=== PATIENT | female | born 1950 | race Caucasian/White ===

== ENCOUNTER 2018-09-29 15:05 | Emergency (ER) | payer MEDICARE, OTHER ==
--- NOTE | 2018-09-29 15:23 | Emergency Department Record ---
History of Present Illness - General Chief complaint: Weakness Stated complaint: WEAK,HEAD ACHE AND NECK PAIN Time Seen by Provider: 09/29/18 15:15 Disposition Quality - Blood Pressure Screening Does Patient Have Any of the Following: No Systolic Measurement: ~
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
[2018-09-29 16:03] LABS: BASO % 0.5 % (0-6); EOS % 0.6 % (0-6); GRAN % 64.8 % (47-80); HEMATOCRIT 40.3 % (35.0-47.0); HEMOGLOBIN 13.4 gm/dl (11.6-16.0); MEAN CELL VOLUME 90.4 fl (81-97); MEAN CORPUSCULAR HGB CONC 33.3 g/dl (32-36); MEAN PLATELET VOLUME 10.8 fl (7.4-10.4); MONO % 6.1 % (0-9); PLATELET COUNT 301 K/uL (130-400); RED BLOOD COUNT 4.46 M/uL (3.80-5.40); RED CELL DISTRIBUTION WIDTH 13.8 % (11.5-14.5); WHITE BLOOD COUNT W/O DIFF 10.4 K/uL (4.2-12.2)
[2018-09-29 16:18] LABS: BLOOD UREA NITROGEN 7 mg/dL (8-23)
[2018-09-29 16:19] LABS: CREATININE 0.8 mg/dL (0.5-0.9); EST GLOMERULAR FILTRATION RATE > 60 mL/min; TOTAL PROTEIN 7.7 g/dL (6.6-8.7)
[2018-09-29 16:21] LABS: GLUCOSE,RANDOM 98 mg/dL (74-109)
[2018-09-29 16:22] LABS: PARTIAL THROMBOPLASTIN TIME 32.7 SECONDS (24.5-39.1); PROTHROMBIN TIME (PATIENT) 10.1 SECONDS (9.5-12.1)
[2018-09-29 16:24] LABS: ALB/GLOB RATIO 1.4 (1.1-1.8); ALBUMIN 4.5 g/dL (4.0-5.0); ALKALINE PHOSPHATASE 67 U/L (35-104); ALT/SGPT 12 U/L (<33); AST/SGOT 19 U/L (10.0-35.0)
[2018-09-29] MEDS ORDERED: ONDANSETRON HCL IV 4 MG/2 ML VIAL IVP ONE (16:36)
[2018-09-29] MEDS ORDERED: 0.9 % SODIUM CHLORIDE 500ML 500 ML IV SCH (16:45)
[2018-09-29] MEDS ORDERED: LORAZEPAM 2 MG/ML VIAL IV ONE (16:53)
[2018-09-29 16:56] LABS: URINE APPEARANCE CLEAR; URINE BILIRUBIN NEGATIVE (NEGATIVE); URINE BLOOD SMALL (NEGATIVE); URINE COLOR YELLOW; URINE GLUCOSE (UA) NEGATIVE (NEGATIVE); URINE KETONE 15 mg/dL (NEGATIVE); URINE LEUKOCYTE ESTERASE NEGATIVE (NEGATIVE); URINE NITRITE NEGATIVE (NEGATIVE); URINE PROTEIN NEGATIVE (NEGATIVE); URINE UROBILINOGEN 0.2 E.U./dL (0.20 - 1.00)
[2018-09-29 17:05] LABS: URINE EPITHELIAL CELLS 0 - 2 (FEW); URINE RBC 0 - 2 (NONE SEEN); URINE WBC 0 - 2 (0-2/hpf)
--- NOTE | 2018-10-01 11:03 | CT SCAN REPORT ---
DATE: 09/29/2018 at 4:01 p.m. EXAM: EMERGENCY HEAD CT. HISTORY: CHRONIC HEADACHE AND DIZZINESS FOR NINE DAYS. TECHNIQUE: Axial CT scan of the head performed without intravenous contrast. COMPARISON: None. FINDINGS: No definite acute intracranial hemorrhage identified. No focal mass effect or midline shift apparent. No definite acute infarct or intracranial mass lesion is seen. There is some mild membrane thickening in the ethmoids bilaterally and probably minimally along the floor of the right maxillary antrum. Elsewhere the paranasal sinuses appear clear as do the mastoids. If the patient's neurologic symptoms persist, follow-up brain MRI would be suggested for further evaluation if not contraindicated. Mild deviation of the nasal septum to the right. Deepak bullosa formation involving the middle turbinates bilaterally. IMPRESSION: 1. NO ACUTE INTRACRANIAL HEMORRHAGE OR FOCAL MASS EFFECT IDENTIFIED. 2. MILD MEMBRANE THICKENING IN THE ETHMOIDS AND ALONG THE FLOOR OF THE RIGHT MAXILLARY SINUS. 3. MILD DEVIATION OF THE NASAL SEPTUM TO THE RIGHT AND DEEPAK BULLOSA FORMATION IN BOTH MIDDLE TURBINATES. JOB NUMBER: [id number] MTDD
--- NOTE | 2018-10-01 11:58 | CT SCAN REPORT ---
DATE: 09/29/2018 at 4:05 p.m. EXAM: EMERGENCY CT OF THE CERVICAL SPINE WITHOUT CONTRAST. HISTORY: DIZZINESS AND WEAKNESS FOR SEVERAL DAYS. TECHNIQUE: Axial CT scan of the entire cervical spine performed without intravenous contrast. Because of PACS equipment failure, the examination was initially sent to [facility] for a preliminary report and is subsequently being interpreted later the same day once the PACS issue was resolved at [facility]. COMPARISON: None. ENCOUNTER: Not applicable. FINDINGS: No apical pneumothorax evident. There does appear to be a couple of tiny bullae in the right apex which may represent mild changes of paraseptal emphysema. Degenerative arthritis at the left temporomandibular joint. No definite fracture of the cervical spine seen, and no prevertebral soft tissue swelling evident. Prominent degenerative change at the odontoid-anterior arch of C1 articulation. Narrowing of the fifth and sixth cervical interspaces with associated hypertrophic spurring. Multilevel facet joint arthropathy as well. Mild disc protrusion centrally at the C3-4 and C4-5 levels. IMPRESSION: 1. NO DEFINITE FRACTURE OR PREVERTEBRAL SOFT TISSUE SWELLING IDENTIFIED IN THE CERVICAL SPINE. 2. MULTILEVEL DEGENERATIVE CHANGE DETAILED ABOVE. 3. A COUPLE OF TINY BULLAE IN THE PERIPHERY OF THE RIGHT LUNG APEX LIKELY REPRESENTING MILD CHANGES OF PARASEPTAL EMPHYSEMA. JOB NUMBER: [id number] MTDD
== END 2018-09-29 17:25 | disposition home or self-care (01) ==
LOC: ER 15:05
DX: G89.29 Other chronic pain (principal); M54.2 Cervicalgia; R51 Headache; E87.8 Other disorders of electrolyte and fluid balance, not elsewhere classified; R42 Dizziness and giddiness; R53.1 Weakness; R11.0 Nausea; I10 Essential (primary) hypertension; F17.210 Nicotine dependence, cigarettes, uncomplicated
CPT/HCPCS: 99284 ×2; 96374; 96375; 85025; 85730; 85610; 80053; 81001; 84443; 84484; 72125; 70450; 93005; 93010; J2405; J2060; J7040

== ENCOUNTER 2019-07-27 14:13 | Emergency (ER) | payer MEDICARE, OTHER ==
--- NOTE | 2019-07-27 14:22 | Emergency Department Record ---
History of Present Illness - General Chief complaint: Vomiting blood Stated complaint: VOMITING BLOOD Time Seen by Provider: 07/27/19 14:21 Source: Patient Mode of Arrival: Ambulatory Limitations: No limitations - History of Present Illness Initial comments: The patient is here due to possibly vomiting blood an hour ago. She has been very anxious today and also has had elevated blood pressure. She did see her PCP today and was told to take extra Lisinopril and also a Xanax. After she took the Xanax she vomited at home and may have vomited blood. She describes the vomitus as having some red in it and is not exactly sure if it was blood. The patient denies any melena or black stools, AP, fever, ASA or NSAID use. She has no hx of Peptic Ulcer Dz and denies alcohol intake. MD complaint: Blood streaked emesis Onset/Timin -: Hour(s) Associated Symptoms: Nausea, Weakness - Related Data Previous Rx's Medication Instructions Recorded Ondansetron [Zofran Odt] 4 mg SL .Q4-6H PRN #12 tab.rapdis 07/27/19 Allergies Allergy/AdvReac Type Severity Reaction Status Date / Time Sulfa (Sulfonamide Allergy HYPERSENSIT Verified 07/27/19 14:21 Antibiotics) IVITY Travel Screening - Travel/Exposure Within Last 30 Days Have you traveled within the last 30 days?: No Review of Systems Constitutional: Denies: Chills Eyes: Denies: Eye discharge ENT: Denies: Congestion Respiratory: Denies: Cough Cardiovascular: Denies: Arrhythmia, Chest pain Endocrine: Denies: Fatigue Gastrointestinal: Reports: Nausea, Vomiting. Denies: Abdominal pain, Diarrhea Genitourinary: Denies: Dysuria Musculoskeletal: Denies: Arthralgia Skin: Denies: Bruising Neurological: Denies: Confusion Past Medical History - SOCIAL HISTORY Smoking Status: Light tobacco smoker (<10/day) Alcohol Use: None Drug Use: None - RESPIRATORY Hx Respiratory Disorders: Yes Hx COPD: Yes - CARDIOVASCULAR Hx Cardio Disorders: Yes Hx Hypertension: Yes - NEURO Hx Dizziness: Yes - GI Hx GI Disorders: Yes Hx Hiatal Hernia: Yes Hx Nausea/Vomiting: Yes Hx Rectal Bleeding: Yes - Hx Genitourinary Disorders: No - ENDOCRINE Hx Thyroid Disease: Yes - MUSCULOSKELETAL Hx Arthritis: Yes - PSYCH Hx Psych Problems: Yes Hx Anxiety: Yes - HEMATOLOGY/ONCOLOGY Hx Hematology/Oncology Disorders: No Physical Exam - General General Appearance: Alert, Oriented x3, Cooperative, No acute distress - Head Head exam: Atraumatic - Eye Eye exam: Normal appearance, PERRL - Neck Neck exam: Normal inspection, Full ROM. negative: Tenderness - Respiratory Respiratory exam: Normal lung sounds bilaterally. negative: Respiratory distress - Cardiovascular Cardiovascular Exam: Regular rate, Normal rhythm, Normal heart sounds - GI/Abdominal GI/Abdominal exam: Soft, Normal bowel sounds. negative: Distended, Guarding, Rebound, Rigid, Tenderness - Rectal Rectal exam: Heme (-) stool, Normal inspection - Extremities Extremities exam: Normal inspection, Full ROM, Normal capillary refill. negative: Tenderness - Neurological Neurological exam: Alert. negative: Motor sensory deficit Course Vital Signs 07/27/19 14:16 Temperature 97.7 F Pulse Rate 78 Respiratory 20 Rate Blood Pressure 193/81 Pulse Ox 100 - Reevaluation(s) Reevaluation #1: The patient is doing very well at this time. She has no nausea, abdominal pain, or back pain and is drinking water with no issues. On exam her abdomen is very soft and nontender in all 4 quads. I did explain to her that based on the neg rectal for blood, normal lab tests, and the fact the patient is doing very well clinically I doubt she vomited blood. She will be referred to GI on an outpatient basis and is to return to the ER for any worsening symptoms. 07/27/19 16:16 Medical Decision Making - Data Complexity MDM Data: Labs Ordered and/or Reviewed - Lab Data Result diagrams: 07/27/19 14:40 07/27/19 14:40 Disposition Disposition: Discharge Clinical Impression: Vomiting Qualifiers: Vomiting type: unspecified Vomiting Intractability: non-intractable Nausea presence: with nausea Qualified Code(s): R11.2 - Nausea with vomiting, unspecified Disposition: Home, Self-Care Condition: (2) Stable Instructions: Acute Nausea and Vomiting (ED) Additional Instructions: Please continue your regular medicines and use the Zofran for nausea. Please see your doctor tomorrow to recheck your blood pressure and also see Dr[facility] next [facility]. Return to the ER for any vomiting, fever, pain, or dark stools. Prescriptions: Ondansetron [Zofran Odt] 4 mg SL .Q4-6H PRN #12 tab.rapdis PRN Reason: Nausea Referrals: [facility] [Provider Group] Forms: Patient Portal Access Time of Disposition: 16:21 Quality - Quality Measures Quality Measures: N/A - Blood Pressure Screening View Details: Yes Does Patient Have Any of the Following: Active Dx of HTN Blood Pressure Classification: Pre-Hypertensive BP Reading Systolic Measurement: 193 Diastolic Measurement: 81 Screening for High Blood Pressure: Patient Exclusion, Hx of HTN [G9744]
[2019-07-27] MEDS: 0.9 % SODIUM CHLORIDE 1,000 ML BAG IV ONE (14:46)
[2019-07-27 14:47] LABS: ABSOLUTE NEUTROPHIL COUNT 8.75; BASO % 0.4 % (0-6); EOS % 0.2 % (0-6); GRAN % 76.7 % (47-80); HEMATOCRIT 38.7 % (35.0-47.0); HEMOGLOBIN 12.7 gm/dl (11.6-16.0); LYMPH % 18.8 % (16-45); MEAN CELL VOLUME 91.9 fl (81-97); MEAN CORPUSCULAR HEMOGLOBIN 30.2 pg (27-33); MEAN CORPUSCULAR HGB CONC 32.8 g/dl (32-36); MEAN PLATELET VOLUME 10.7 fl (7.4-10.4); MONO % 3.9 % (0-9); PLATELET COUNT 284 K/uL (130-400); RED BLOOD COUNT 4.21 M/uL (3.80-5.40); RED CELL DISTRIBUTION WIDTH 13.7 % (11.5-14.5); WHITE BLOOD COUNT W/O DIFF 11.4 K/uL (4.2-12.2)
[2019-07-27 14:57] LABS: BLOOD UREA NITROGEN 13 mg/dL (8-23); CREATININE 0.8 mg/dL (0.5-0.9); EST GLOMERULAR FILTRATION RATE > 60 mL/min; TOTAL PROTEIN 7.4 g/dL (6.6-8.7)
[2019-07-27 14:59] LABS: GLUCOSE,RANDOM 112 mg/dL (74-109)
[2019-07-27 15:00] LABS: INR 0.9; PARTIAL THROMBOPLASTIN TIME 30.5 SECONDS (24.5-39.1); PROTHROMBIN TIME (PATIENT) 9.6 SECONDS (9.5-12.1)
[2019-07-27 15:02] LABS: ALBUMIN 4.4 g/dL (4.0-5.0); ALKALINE PHOSPHATASE 64 U/L (35-104); ALT/SGPT 11 U/L (<33); AST/SGOT 20 U/L (10.0-35.0)
[2019-07-27 15:03] LABS: BILIRUBIN,DIRECT < 0.2 mg/dL (0-0.3)
[2019-07-27] MEDS: ONDANSETRON HCL IV 4 MG/2 ML VIAL IVP ONE (15:45)
== END 2019-07-27 16:38 | disposition home or self-care (01) ==
LOC: ER 14:13
DX: R11.2 Nausea with vomiting, unspecified (principal); R53.1 Weakness; R42 Dizziness and giddiness; I10 Essential (primary) hypertension; F17.210 Nicotine dependence, cigarettes, uncomplicated
CPT/HCPCS: 80048; 80076; 84443; 85025; 85610; 85730; 96361; 96374; 99284; J2405; J7030

== ENCOUNTER 2019-10-15 13:24 | Emergency (ER) | payer MEDICARE, OTHER ==
--- NOTE | 2019-10-15 14:34 | Emergency Department Record ---
History of Present Illness - General Chief complaint: Female Urogenital Problem Stated complaint: PAIN WHILE URINATING Time Seen by Provider: 10/15/19 14:33 Source: Patient, RN notes reviewed Mode of Arrival: Ambulatory - History of Present Illness Initial comments: pain and frequent urination for 3 days Complaint: Dysuria Onset/Timin -: Days(s) Quality: Other Consistency: Constant Improves with: None Worsens with: None Associated Symptoms: Abdominal pain, Dysuria - Related Data Home Medications Medication Instructions Recorded Confirmed Last Taken Atorvastatin Calcium 20 mg PO QHS 10/15/19 10/15/19 10/15/19 Previous Rx's Medication Instructions Recorded Ciprofloxacin HCl [Cipro] 500 mg PO Q12HR #20 tablet 10/15/19 Phenazopyridine HCl [Pyridium] 200 mg PO TID #9 tab 10/15/19 Allergies Allergy/AdvReac Type Severity Reaction Status Date / Time Sulfa (Sulfonamide Allergy HYPERSENSIT Verified 07/27/19 14:21 Antibiotics) IVITY Travel Screening - Travel/Exposure Within Last 30 Days Have you traveled within the last 30 days?: No - Travel/Exposure Within Last Year Have you traveled outside the [place] in the last year?: No - Additonal Travel Details Have you been exposed to anyone with a communicable illness?: No - Travel Symptoms Symptom Screening: None Review of Systems Reviewed: No additional complaints except as noted below Constitutional: Reports: As per HPI. Denies: Chills, Fever, Malaise, Night sweats, Weakness, Weight change Eyes: Reports: As per HPI. Denies: Eye discharge, Eye pain, Photophobia, Vision change ENT: Reports: As per HPI. Denies: Congestion, Dental pain, Ear pain, Epistaxis, Hearing loss, Throat pain Respiratory: Reports: As per HPI. Denies: Cough, Dyspnea, Hemoptysis, Stridor, Wheezes Cardiovascular: Reports: As per HPI. Denies: Arrhythmia, Chest pain, Dyspnea on exertion, Edema, Murmurs, Orthopnea, Palpitations, Paroxysmal nocturnal dyspnea, Rheumatic Fever, Syncope Endocrine: Reports: As per HPI. Denies: Fatigue, Heat or cold intolerance, Polydipsia, Polyuria Gastrointestinal: Reports: As per HPI. Denies: Abdominal pain, Constipation, Diarrhea, Hematemesis, Hematochezia, Melena, Nausea, Vomiting Genitourinary: Reports: As per HPI, Dysuria, Frequency, Urgency. Denies: Abnormal menses, Discharge, Dyspareunia, Hematuria, Incontinence, Retention Musculoskeletal: Reports: As per HPI. Denies: Arthralgia, Back pain, Gout, Joint swelling, Myalgia, Neck pain Skin: Reports: As per HPI. Denies: Bruising, Change in color, Change in hair/nails, Lesions, Pruritus, Rash Neurological: Reports: As per HPI. Denies: Abnormal gait, Confusion, Headache, Numbness, Paresthesias, Seizure, Tingling, Tremors, Vertigo, Weakness Psychiatric: Reports: As per HPI. Denies: Anxiety, Auditory hallucinations, Depression, Homicidal thoughts, Suicidal thoughts, Visual hallucinations Hematological/Lymphatic: Reports: As per HPI. Denies: Anemia, Blood Clots, Easy bleeding, Easy bruising, Swollen glands Past Medical History - SOCIAL HISTORY Smoking Status: Light tobacco smoker (<10/day) Alcohol Use: None Drug Use: None - RESPIRATORY Hx Respiratory Disorders: Yes Hx COPD: Yes - CARDIOVASCULAR Hx Cardio Disorders: Yes Hx Hypertension: Yes - NEURO Hx Neuro Disorders: Yes Hx Dizziness: Yes - GI Hx GI Disorders: Yes Hx Hiatal Hernia: Yes Hx Nausea/Vomiting: Yes Hx Rectal Bleeding: Yes - Hx Genitourinary Disorders: No - ENDOCRINE Hx Endocrine Disorders: Yes Hx Thyroid Disease: Yes - MUSCULOSKELETAL Hx Musculoskeletal Disorders: Yes Hx Arthritis: Yes - PSYCH Hx Psych Problems: Yes Hx Anxiety: Yes - HEMATOLOGY/ONCOLOGY Hx Hematology/Oncology Disorders: No Family Medical History Any Significant Family History?: No Physical Exam - General General Appearance: Alert, Oriented x3, Cooperative, No acute distress - Head Head exam: Normal inspection - Eye Eye exam: Normal appearance, PERRL Pupils: Normal accommodation - ENT ENT exam: Normal exam, Mucous membranes moist, Normal external ear exam, Normal orophraynx, TM's normal bilaterally Ear exam: Normal external inspection. negative: External canal tenderness Nasal Exam: Normal inspection. negative: Discharge, Sinus tenderness Mouth exam: Normal external inspection, Tongue normal Teeth exam: Normal inspection. negative: Dental caries Throat exam: Normal inspection. negative: Tonsillar erythema, Tonsillar exudate - Neck Neck exam: Normal inspection, Full ROM. negative: Tenderness - Respiratory Respiratory exam: Normal lung sounds bilaterally. negative: Respiratory distress - Cardiovascular Cardiovascular Exam: Regular rate, Normal rhythm, Normal heart sounds - GI/Abdominal GI/Abdominal exam: Soft, Normal bowel sounds. negative: Tenderness - Rectal Rectal exam: Deferred - exam: Deferred - Extremities Extremities exam: Normal inspection, Full ROM, Normal capillary refill. negative: Tenderness - Back Back exam: Reports: Normal inspection, Full ROM. Denies: Muscle spasm, Rash noted, Tenderness - Neurological Neurological exam: Alert, Normal gait, Oriented X3, Reflexes normal - Psychiatric Psychiatric exam: Normal affect, Normal mood - Skin Skin exam: Dry, Intact, Normal color, Warm Course Vital Signs 10/15/19 14:16 Temperature 97.8 F Pulse Rate 98 H Respiratory 20 Rate Blood Pressure 175/97 Pulse Ox 100 Disposition Clinical Impression: UTI (urinary tract infection) Qualifiers: Urinary tract infection type: acute cystitis Hematuria presence: without hematuria Qualified Code(s): N30.00 - Acute cystitis without hematuria Disposition: Home, Self-Care Condition: (1) Good Instructions: Urinary Traction Infection in Older Adults (ED) Additional Instructions: follow up with family dr in 4 days Prescriptions: Ciprofloxacin HCl [Cipro] 500 mg PO Q12HR #20 tablet Phenazopyridine HCl [Pyridium] 200 mg PO TID #9 tab Forms: Patient Portal Access Time of Disposition: 15:03 Quality - Quality Measures Quality Measures: N/A - Blood Pressure Screening Does Patient Have Any of the Following: No, Active Dx of HTN Blood Pressure Classification: Hypertensive Reading Systolic Measurement: 175 Diastolic Measurement: 97 Screening for High Blood Pressure: Patient Exclusion, Hx of HTN [G9744] Pre-Hypertensive Follow-up Interventions: Referral to alternative/primary care provider.
[2019-10-15 14:37] LABS: URINE APPEARANCE SL CLOUDY; URINE BILIRUBIN NEGATIVE (NEGATIVE); URINE BLOOD LARGE (NEGATIVE); URINE COLOR YELLOW; URINE GLUCOSE (UA) NEGATIVE (NEGATIVE); URINE KETONE NEGATIVE (NEGATIVE); URINE LEUKOCYTE ESTERASE LARGE (NEGATIVE); URINE NITRITE NEGATIVE (NEGATIVE); URINE UROBILINOGEN 0.2 E.U./dL (0.20 - 1.00)
[2019-10-15 14:50] LABS: URINE BACTERIA NONE SEEN; URINE EPITHELIAL CELLS 0 - 2 (FEW); URINE RBC 16 - 25 (NONE SEEN)
== END 2019-10-15 15:19 | disposition home or self-care (01) ==
LOC: ER 13:24
DX: N30.00 Acute cystitis without hematuria (principal); I10 Essential (primary) hypertension; J44.9 Chronic obstructive pulmonary disease, unspecified
CPT/HCPCS: 81001; 99283